=== PATIENT | female | born 1965 | race Caucasian/White ===

== ENCOUNTER 2017-06-15 12:29 | Emergency (ER) | payer OTHER ==
[~2017-06-15] VITALS: Ht 154.9 cm; Wt 77.0 kg
[2017-06-15 12:35] VITALS: Ht 154.9 cm; Wt 77.0 kg
[2017-06-15] MEDS ORDERED: HYDROmorphONE 2 MG/ML SYG IM STA ×2 (13:20→14:41)
--- NOTE | 2017-06-15 13:24 | ERD ---
ER Documentation Chief Complaint Date/Time DATE: 06/15/17 TIME: 13:21 Chief Complaint BACK PAIN STARTED ON SATURDAY EVENING HPI This is a very pleasant 52-year-old female with a known history of asthma presents to the emergency department complaining of lower back pain that began 5 days prior to arrival. The patient indicated she had nontraumatic back pain, sudden onset while attempting to get out of the car. She was a passenger and when she put down her right foot she felt a sudden sharp shooting pain in the right buttocks that radiated down the lateral aspect of the right leg. The patient denies any saddle anesthesia. She has had no fevers or shaking or chills. She went to [facility] but no radiographic imaging was obtained. She indicates she lives in [place] and has a flight to return home today at 8 PM but due to the pain is concerned that she will be unable to fly and therefore is requesting analgesic medication. She denies any hematuria no frequency urgency or dysuria. She denies any abdominal pain. She has no history of back pain. She denies any numbness or tingling of her lower extremities. The patient also denies any difficulty breathing ROS All systems reviewed and are negative except as per history of present illness. Medications Home Meds Active Scripts Diazepam* (Valium*) 5 Mg Tablet, 5 MG PO Q8 Y for MUSCLE SPASMS, #10 TAB Prov:JUSTIN LEGGETT 06/15/17 Hydrocodone/Acetaminophen ([place] 10-325 Tablet) 1 Each Tablet, 1 TAB PO Q6H Y for PAIN, #20 TAB Prov:JUSTIN LEGGETT 06/15/17 Allergies Allergies: Coded Allergies: morphine (Verified Allergy, Unknown, "stopped breathing", 06/15/17) PMhx/Soc History of Surgery: Yes (R shoulder, Cholecystectomy, Partial hysterectomy, tubal ligation) Anesthesia Reaction: No Hx Neurological Disorder: No Hx Respiratory Disorders: Yes (Asthma) Hx Cardiac Disorders: No Hx Psychiatric Problems: No Hx Miscellaneous Medical Probl: No Hx Alcohol Use: Yes (Socially) Hx Substance Use: No Hx Tobacco Use: Yes (5 cigarettes per day) Smoking Status: Current every day smoker Physical Exam Vitals Vital Signs Date Time Temp Pulse Resp B/P Pulse Ox O2 Delivery O2 Flow Rate FiO2 06/15/17 12:35 98.4 75 18 129/59 99 Physical Exam Constitutional:Well-developed. Well-nourished. Patient appeared to be in a significant amount discomfort secondary to pain. Sitting in a wheelchair HEENT:Normocephalic. Atraumatic.Pupils were equal round reactive to light. Moist mucous membranes.No tonsillar exudates. Neck: No nuchal rigidity. No lymphadenopathy. No posterior cervical spine tenderness or step-offs. Respiratory: Not using accessory muscles of respiration.Lungs were clear to auscultation bilaterally. No rhonchi. No rales. No wheezing. Cardiovascular: Regular rate regular rhythm.No murmurs. No rubs were appreciated.S1, S2 normal. Distal pulses are palpable 2+ bilaterally. GI: Abdomen was soft. Nontender. Non Distended. No pulsatile abdominal masses or bruits. No rebound. No guarding. Bowel sounds were present and normal. Muscle skeletal: Full range of motion of both the upper and lower extremities bilaterally.Normal muscle tone.No assymetrical calf tenderness or swelling. Straight leg test positive on the right. Right CVA tenderness and tenderness over the right paralumbar region L4-L5. No tenderness with palpation or percussion of the thoracic or lumbar spinous processes. Skin: No petechia, no purpura. No lesions on the palms or the soles of the feet. No maculopapular rash. NEURO: Patient was alert, awake, orientated x3.No facial droop. Gait observed and patient was in discomfort with ambulation.Speech had regular rate and rhythm. No focal neurological deficits. Results 24 hrs Current Medications Medications (Trade) Dose Ordered Sig/Jamie Route PRN Reason Start Time Stop Time Status Last Admin Dose Admin Hydromorphone HCl (Dilaudid) 2 mg ONCE STAT IM 06/15/17 13:20 06/15/17 13:21 DC 06/15/17 13:26 Diazepam (Valium) 10 mg ONCE ONCE PO 06/15/17 13:30 06/15/17 13:31 DC 06/15/17 13:25 Ondansetron HCl (Zofran Odt) 4 mg ONCE STAT ODT 06/15/17 13:56 06/15/17 13:58 DC 06/15/17 14:01 Hydromorphone HCl (Dilaudid) 2 mg ONCE STAT IM 06/15/17 14:41 06/15/17 14:42 DC 06/15/17 14:50 Ondansetron HCl (Zofran Odt) 4 mg ONCE STAT ODT 06/15/17 14:41 06/15/17 14:42 DC 06/15/17 14:49 Procedures/MDM The patient presented to the emergency department with back pain. My differential diagnosis included but was not limited to spinal origins of the pain such as fracture, osteomyelitis, epidural abscess, neoplasm, spondylolishtesis, discogenic, cauda equina syndrome or musculoligamentous. Nonspinal causes such as AAA, upper UTI, renal colic, aortic dissection, abdominal neoplasm were also considered as an etiology into their pain. I obtained a CT scan which showed no evidence of abdominal aortic aneurysm or obstructive uropathy. The patient received IM Dilaudid she states she has adverse reactions to morphine but no complications with Dilaudid. She received muscle relaxants p.o. which included valium. The patient states she felt comfortable being discharged home and will follow up with her PCP in [place] to undergo an MRI and there is no signs of cauda equina syndrome at this time. Departure Diagnosis: Primary Impression: Back pain Back pain location: low back pain Chronicity: acute Back pain laterality: right Sciatica presence: with sciatica Sciatica laterality: sciatica laterality unspecified Qualified Code: M54.40 - Acute right-sided low back pain with sciatica, sciatica laterality unspecified Condition: JUSTIN Snow Jun 15, 2017 13:24
[2017-06-15] MEDS ORDERED: DIAZEPAM 5 MG TAB PO ONE (13:30)
[2017-06-15] MEDS ORDERED: ONDANSETRON (ODT) 4 MG TAB ODT STA ×2 (13:56→14:41)
--- NOTE | 2017-06-15 15:09 | RADRPT ---
PROCEDURE: CT abdomen and pelvis without contrast. CLINICAL INDICATION: Abdominal Pain TECHNIQUE: CT scan of the abdomen and pelvis without contrast was performed and is reconstructed a t 2.5 mm contiguous axial intervals from the dome of the diaphragm to the inferior pubic rami.. The patient was scanned without intravenous contrast. Sagittal and coronal reformatted images were obt ained from the axial source images. The calculated radiation dose measures 852 mGy centimeters. The CTDI measures 15 mGy. COMPARISON: None. FINDINGS: The lung bases are clear of any infiltrate or nodule. No effusion is seen. The liver is of normal size, contour and attenuation with no mass or ductal dilatation. No gallston es are visualized. No splenic, adrenal or pancreatic abnormalities present. Kidneys are of normal size and contour. No hydronephrosis, calculus or masses seen. Ureters are o f normal course and caliber with no stone. No bladder mass or stone is present. There is no aneurysm. No adenopathy is present. No bowel mass or obstruction is present. The appendix is normal. No phlegmon, ascites or pneumop eritoneum is visualized. The osseous structures are intact. IMPRESSION: No evidence of urolithiasis, obstructive uropathy, diverticulitis or appendicitis. .Chay Swift MD, MD Date Time Electronically viewed and signed by .Chay Swift MD, on 06/15/2017 15:08 .A/
[2017-06-15] MEDS ORDERED: DIAZ-90 PO (15:19)
[2017-06-15] MEDS ORDERED: HYDR-902 PO (15:19)
== END 2017-06-15 15:27 | disposition home or self-care (01) ==
LOC: FTE 12:29
DX: M54.41 Lumbago with sciatica, right side (principal); J45.909 Unspecified asthma, uncomplicated; F17.210 Nicotine dependence, cigarettes, uncomplicated
CPT/HCPCS: 74176; J1170; 96372